=== PATIENT | female | born 1955 | race African-American/Black ===

== ENCOUNTER 2018-08-28 18:53 | Inpatient (IN) | payer MEDICAID, MEDICARE ==
[~2018-08-28] VITALS: Ht 167.6 cm; Wt 97.8 kg
[~2018-08-28 18:53] MED LIST: [UNRECOGNIZED DRUG - REMARK]
[2018-08-28 19:35] LABS: GLUCOSE,POINT OF CARE 107 MG/DL (70-110)
[2018-08-28] MEDS ORDERED: BUSP15 PO (19:38)
[2018-08-28] MEDS ORDERED: ACET1TAB12 PO (19:38)
[2018-08-28] MEDS ORDERED: AMIT10TA6 PO (19:38)
[2018-08-28] MEDS ORDERED: LISI-661 PO (19:38)
[2018-08-28] MEDS ORDERED: ISOS30TA6 PO (19:38)
[2018-08-28] MEDS ORDERED: METO-408 PO (19:38)
[2018-08-28] MEDS ORDERED: NITR.4 SL (19:38)
[2018-08-28] MEDS ORDERED: ROSU20 PO (19:38)
[2018-08-28] MEDS ORDERED: SIME80 PO (19:38)
[2018-08-28] MEDS ORDERED: ACETAMINOPHEN 500 MG TABLET PO ONE (20:00)
[2018-08-28] MEDS ORDERED: ASPIRIN 81 MG CHEWABLE TABLET PO ONE (20:00)
[2018-08-28 20:14] LABS: EOSINOPHILS % (AUTO) 1.2 % (1.0-6.0); HEMOGLOBIN 12.5 g/dL (12.0-16.0); LYMPHOCYTES # (AUTO) 0.8 K/uL (1.0-4.8); LYMPHOCYTES % (AUTO) 7.4 % (22.0-44.0); MEAN CORPUSCULAR HEMOGLOBIN 31.2 pg (26.0-34.0); MEAN CORPUSCULAR HGB CONC 33.7 G/dL (31.0-37.0); MEAN CORPUSCULAR VOLUME 93 fL (80-100); MONOCYTES % (AUTO) 8.8 % (2.0-9.0); NEUTROPHILS # (AUTO) 8.9 K/uL (1.8-7.7); NEUTROPHILS % (AUTO) 81.6 % (40.0-70.0); PLATELET COUNT (AUTO) 234 K/uL (150-450); RED BLOOD CELL COUNT(AUTO) 3.99 MIL/uL (4.00-5.20); RED CELL DISTRIBUTION WIDTH 13.5 % (11.5-14.5)
[2018-08-28 20:24] LABS: CALCIUM, TOTAL 8.9 mg/dL (8.8-10.5); CREATININE 1.14 mg/dL (0.60-1.30); POTASSIUM 3.6 mmol/L (3.5-5.1)
[2018-08-28 20:27] LABS: PROTHROMBIN TIME 10.7 SEC (9.4-11.6)
[2018-08-28 20:41] LABS: APPEARANCE,URINE CLOUDY (CLEAR); BILIRUBIN,URINE NEGATIVE (NEGATIVE); GLUCOSE, URINE (UA) NEGATIVE (NEGATIVE); KETONES,URINE NEGATIVE (NEGATIVE); LEUKOCYTE ESTERASE ,URINE MODERATE (NEGATIVE); NITRATE,URINE NEGATIVE (NEGATIVE); OCCULT BLOOD,URINE TRACE (NEGATIVE); PH,URINE 5.5 (5.0-8.0); PROTEIN,URINE POS 1+ (NEGATIVE); UROBILINOGEN,URINE 0.2 mg/dL (<=1.0)
[2018-08-28 20:47] LABS: AMPHET/METH SCREEN,URINE NEGATIVE (NEGATIVE); BARBITURATE SCREEN, URINE NEGATIVE (NEGATIVE); BENZODIAZEPINES SCREEN,URINE NEGATIVE (NEGATIVE); CANNABINOID SCREEN,URINE NEGATIVE (NEGATIVE); COCAINE SCREEN,URINE NEGATIVE (NEGATIVE); METHADONE SCREEN, URINE NEGATIVE (NEGATIVE); OPIATE SCREEN,URINE POSITIVE (NEGATIVE); PHENCYCLIDINE SCREEN,URINE NEGATIVE (NEGATIVE)
[2018-08-28 20:49] LABS: ALBUMIN 3.5 g/dL (3.4-5.0); BILIRUBIN,TOTAL 0.5 mg/dL (0.1-1.0); TOTAL PROTEIN, SERUM 7.8 g/dL (6.4-8.2)
[2018-08-28 20:53] LABS: BACTERIA,URINE Moderate /HPF (None Seen); RBC,URINE 0-2 /HPF (0-2); WBC,URINE 51-100 /HPF (0-5)
[2018-08-28 20:54] LABS: SQUAMOUS EPITHELIAL CELL,UR Few /LPF (None Seen)
[2018-08-28] MEDS ORDERED: CefTRIAXone SODIUM 2 GM in DEXTROSE 5%-WATER 20 ML IV ONE (21:00)
[2018-08-28] MEDS ORDERED: SODIUM CHLORIDE 0.9% 1,000 ML IV ONE ×2 (21:00→22:00)
[2018-08-28] MEDS ORDERED: AZITHROMYCIN 500 MG/NS 250 ML IV ONE (22:00)
[2018-08-28] MEDS ORDERED: MAGNESIUM HYDROXIDE SUSPENSION 30 ML UDCUP PO PRN ×2 (22:30)
[2018-08-28] MEDS ORDERED: ONDANSETRON HCL 4 MG/2 ML VIAL IVP PRN ×2 (22:30)
[2018-08-28] MEDS ORDERED: MORPHINE SULFATE 2 MG/ML SYRINGE IVP PRN (22:30)
[2018-08-28] MEDS ORDERED: ACETAMINOPHEN 325 MG TABLET PO PRN ×2 (22:30)
[2018-08-28] MEDS ORDERED: IPRATROPIUM BROMIDE 0.5 MG/2.5 ML NEB SOLUTION NEB PRN (22:30)
[2018-08-28] MEDS ORDERED: BISACODYL 10 MG RECTAL RECTAL SUPPOSITORY PR PRN ×2 (22:30)
[2018-08-28] MEDS ORDERED: HYDROCODONE/ACETAMINOPHEN 5-325 MG TABLET PO PRN (22:30)
[2018-08-28] MEDS ORDERED: ZOLPIDEM TARTRATE 5 MG TABLET PO PRN (22:30)
[2018-08-28] MEDS ORDERED: ALBUTEROL SULFATE 2.5 MG/0.5 ML NEB SOLUTION NEB PRN (22:30)
[2018-08-28] MEDS: HYDROCODONE/ACETAMINOPHEN 5-325 MG TABLET PO PRN (23:26)
[2018-08-28] MEDS: MORPHINE SULFATE 4 MG/ML SYRINGE IVP PRN (23:44)
[2018-08-29] VITALS (7 sets, daily range): BP systolic 119–144; BP diastolic 61–99
[2018-08-29] MEDS ORDERED: HEPARIN SODIUM,PORCINE 5,000 UNITS/ML VIAL SQ SCH
[2018-08-29] MEDS: HEPARIN SODIUM,PORCINE 5,000 UNITS/ML VIAL SQ SCH ×4 (00:40→23:53)
[2018-08-29] MEDS: MethylPREDNISolone SOD SUCC 40 MG/ML VIAL IVP SCH ×5 (00:40→23:53)
[2018-08-29] MEDS: ZOLPIDEM TARTRATE 5 MG TABLET PO PRN ×2 (00:41→22:26)
[2018-08-29] MEDS: MORPHINE SULFATE 4 MG/ML SYRINGE IVP PRN ×5 (04:48→21:30)
[2018-08-29] MEDS: HYDROCODONE/ACETAMINOPHEN 5-325 MG TABLET PO PRN ×5 (05:32→22:26)
[2018-08-29 06:10] LABS: BASOPHILS % (AUTO) 0.3 % (0.0-2.0); EOSINOPHILS % (AUTO) 0.1 % (1.0-6.0); HEMATOCRIT 37.5 % (36-46); HEMOGLOBIN 12.4 g/dL (12.0-16.0); LYMPHOCYTES # (AUTO) 0.6 K/uL (1.0-4.8); LYMPHOCYTES % (AUTO) 5.8 % (22.0-44.0); MEAN CORPUSCULAR VOLUME 94 fL (80-100); MONOCYTES # (AUTO) 0.3 K/uL (0.1-1.0); MONOCYTES % (AUTO) 2.8 % (2.0-9.0); NEUTROPHILS # (AUTO) 9.6 K/uL (1.8-7.7); PLATELET COUNT (AUTO) 243 K/uL (150-450); RED CELL DISTRIBUTION WIDTH 13.5 % (11.5-14.5)
[2018-08-29 06:33] LABS: ANION GAP 7 mmol/L (8-16); CALCIUM, TOTAL 8.7 mg/dL (8.8-10.5); CARBON DIOXIDE 28 mmol/L (22-29); CHLORIDE 104 mmol/L (98-107); CREATININE 1.04 mg/dL (0.60-1.30); GLOMERULAR FILTR. RATE CALC > 60 mL/min (>60); GLUCOSE,RANDOM 160 mg/dL (70-110); POTASSIUM 3.7 mmol/L (3.5-5.1); SODIUM SERUM 139 mmol/L (136-145); UREA NITROGEN, BLOOD 8 mg/dL (7-18)
[2018-08-29] MEDS: PANTOPRAZOLE SODIUM 40 MG DR TABLET PO SCH (08:31)
[2018-08-29] MEDS: BusPIRone HCL 15 MG TABLET PO SCH (08:32)
[2018-08-29] MEDS: GuaiFENesin SR 600 MG ER TABLET PO SCH ×2 (08:32→20:32)
[2018-08-29] MEDS: ISOSORBIDE MONONITRATE 30 MG ER TABLET PO SCH (08:32)
[2018-08-29] MEDS: LEVOFLOXACIN 750 MG/D5% WATER 150 ML IV SCH (08:33)
[2018-08-29] MEDS: DOCUSATE SODIUM 100 MG CAPSULE PO SCH ×2 (08:33→20:31)
[2018-08-29] MEDS: BENZONATATE 100 MG CAPSULE PO SCH ×3 (08:33→20:32)
[2018-08-29] MEDS: SIMETHICONE 80 MG CHEWABLE TABLET PO SCH ×2 (08:45→20:32)
[2018-08-29] MEDS ORDERED: ROSUVASTATIN CALCIUM 20 MG TABLET PO SCH ×2 (09:00→21:00)
[2018-08-29] MEDS ORDERED: PANTOPRAZOLE SODIUM 40 MG DR TABLET PO SCH (09:00)
[2018-08-29] MEDS ORDERED: LISINOPRIL 10 MG TABLET PO SCH (09:00)
[2018-08-29] MEDS ORDERED: DOCUSATE SODIUM 100 MG CAPSULE PO SCH (09:00)
[2018-08-29] MEDS: IPRATROPIUM BROMIDE 0.5 MG/2.5 ML NEB SOLUTION NEB SCH ×3 (09:17→20:19)
[2018-08-29] MEDS: ALBUTEROL SULFATE 2.5 MG/0.5 ML NEB SOLUTION NEB SCH ×3 (09:17→20:19)
[2018-08-29] MEDS: METOPROLOL TARTRATE 25 MG TABLET PO SCH (20:32)
[2018-08-29] MEDS ORDERED: AMITRIPTYLINE HCL 10 MG TABLET PO SCH (21:00)
[2018-08-30] MEDS: MORPHINE SULFATE 4 MG/ML SYRINGE IVP PRN ×3 (01:22→09:34)
[2018-08-30] MEDS: IPRATROPIUM BROMIDE 0.5 MG/2.5 ML NEB SOLUTION NEB SCH ×2 (02:00→09:10)
[2018-08-30] MEDS: ALBUTEROL SULFATE 2.5 MG/0.5 ML NEB SOLUTION NEB SCH ×2 (02:00→09:10)
[2018-08-30] MEDS: HYDROCODONE/ACETAMINOPHEN 5-325 MG TABLET PO PRN ×3 (02:23→11:39)
[2018-08-30 04:28] VITALS: BP_SYST 118; BP_SYST 123; BP_DIAS 71; BP_DIAS 80
[2018-08-30] MEDS: MethylPREDNISolone SOD SUCC 40 MG/ML VIAL IVP SCH ×2 (05:33→12:22)
[2018-08-30 07:01] LABS: BASOPHILS % (AUTO) 0.2 % (0.0-2.0); EOSINOPHILS % (AUTO) 0 % (1.0-6.0); HEMATOCRIT 35.5 % (36-46); LYMPHOCYTES % (AUTO) 7.3 % (22.0-44.0); MEAN CORPUSCULAR HEMOGLOBIN 31.1 pg (26.0-34.0); MEAN CORPUSCULAR HGB CONC 33.7 G/dL (31.0-37.0); MEAN CORPUSCULAR VOLUME 92 fL (80-100); MONOCYTES # (AUTO) 0.5 K/uL (0.1-1.0); MONOCYTES % (AUTO) 3.6 % (2.0-9.0); NEUTROPHILS # (AUTO) 12.5 K/uL (1.8-7.7); PLATELET COUNT (AUTO) 280 K/uL (150-450); RED BLOOD CELL COUNT(AUTO) 3.85 MIL/uL (4.00-5.20); RED CELL DISTRIBUTION WIDTH 13.2 % (11.5-14.5)
[2018-08-30 07:03] LABS: NEUTROPHILS % (AUTO) 88.9 % (40.0-70.0)
[2018-08-30 07:29] VITALS: BP 125/68
[2018-08-30 07:33] LABS: ANION GAP 9 mmol/L (8-16); CALCIUM, TOTAL 8.7 mg/dL (8.8-10.5); CARBON DIOXIDE 27 mmol/L (22-29); CHLORIDE 103 mmol/L (98-107); CREATININE 0.89 mg/dL (0.60-1.30); GLOMERULAR FILTR. RATE CALC > 60 mL/min (>60); GLUCOSE,RANDOM 190 mg/dL (70-110); POTASSIUM 4.7 mmol/L (3.5-5.1); SODIUM SERUM 139 mmol/L (136-145); UREA NITROGEN, BLOOD 13 mg/dL (7-18)
[2018-08-30] MEDS: BusPIRone HCL 15 MG TABLET PO SCH (08:18)
[2018-08-30] MEDS: HEPARIN SODIUM,PORCINE 5,000 UNITS/ML VIAL SQ SCH (08:18)
[2018-08-30] MEDS: METOPROLOL TARTRATE 25 MG TABLET PO SCH (08:19)
[2018-08-30] MEDS: GuaiFENesin SR 600 MG ER TABLET PO SCH (08:19)
[2018-08-30] MEDS: ISOSORBIDE MONONITRATE 30 MG ER TABLET PO SCH (08:19)
[2018-08-30] MEDS: SIMETHICONE 80 MG CHEWABLE TABLET PO SCH (08:19)
[2018-08-30] MEDS: DOCUSATE SODIUM 100 MG CAPSULE PO SCH (08:19)
[2018-08-30] MEDS: PANTOPRAZOLE SODIUM 40 MG DR TABLET PO SCH (08:20)
[2018-08-30] MEDS: LEVOFLOXACIN 750 MG/D5% WATER 150 ML IV SCH (08:21)
[2018-08-30] MEDS: BENZONATATE 100 MG CAPSULE PO SCH (09:00)
[2018-08-30] MEDS ORDERED: LISINOPRIL 5 MG TABLET PO SCH (09:00)
[2018-08-30] MEDS ORDERED: FLUOCINONIDE 0.05% 15 GM CREAM TP SCH (09:30)
== END 2018-08-30 12:25 | disposition home or self-care (01) | DRG 190 ==
LOC: EMS 18:54 → 5S 22:17 → 5N 08-29 21:33 → 5S 08-29 21:33
PROVIDERS: ADMIT Internal Medicine; ATTEND Internal Medicine
DX: J44.1 Chronic obstructive pulmonary disease with (acute) exacerbation (principal); J18.9 Pneumonia, unspecified organism; N39.0 Urinary tract infection, site not specified; F11.20 Opioid dependence, uncomplicated; J45.901 Unspecified asthma with (acute) exacerbation; J44.0 Chronic obstructive pulmonary disease with (acute) lower respiratory infection; I10 Essential (primary) hypertension; E66.9 Obesity, unspecified; F17.200 Nicotine dependence, unspecified, uncomplicated; I25.10 Atherosclerotic heart disease of native coronary artery without angina pectoris; Z68.34 Body mass index [BMI] 34.0-34.9, adult; I25.2 Old myocardial infarction
CPT/HCPCS: 83605; 87040; 87086; 93005; 94640; 96365; 96375; 99406; G0378; J0456; J0696; J1644; J1956; J2270; J2920; J7030; J7060

== ENCOUNTER 2019-01-10 12:58 | Emergency (ER) | payer MEDICARE ==
[~2019-01-10] VITALS: Ht 167.6 cm; Wt 90.9 kg
[~2019-01-10 12:58] MED LIST changes: +AMIT10TA6 PO; +BUSP15 PO; +ISOS30TA6 PO; +LISI-661 PO; +METO-408 PO; +NITR.4 SL; +ROSU20TA23 PO; +SIME80 PO; -[UNRECOGNIZED DRUG - REMARK]
[2019-01-10 14:12] LABS: EOSINOPHILS % (AUTO) 1.7 % (1.0-6.0); HEMATOCRIT 37.3 % (36-46); HEMOGLOBIN 12.2 g/dL (12.0-16.0); LYMPHOCYTES # (AUTO) 1.4 K/uL (1.0-4.8); LYMPHOCYTES % (AUTO) 21.8 % (22.0-44.0); MEAN CORPUSCULAR HEMOGLOBIN 30.9 pg (26.0-34.0); MEAN CORPUSCULAR HGB CONC 32.8 G/dL (31.0-37.0); MEAN CORPUSCULAR VOLUME 94 fL (80-100); MONOCYTES # (AUTO) 0.5 K/uL (0.1-1.0); MONOCYTES % (AUTO) 7.5 % (2.0-9.0); NEUTROPHILS # (AUTO) 4.5 K/uL (1.8-7.7); PLATELET COUNT (AUTO) 261 K/uL (150-450); RED BLOOD CELL COUNT(AUTO) 3.96 MIL/uL (4.00-5.20); RED CELL DISTRIBUTION WIDTH 13.9 % (11.5-14.5)
[2019-01-10 14:14] LABS: ANION GAP 11 mmol/L (8-16); CARBON DIOXIDE 24 mmol/L (22-29); CHLORIDE 103 mmol/L (98-107); CREATININE 0.78 mg/dL (0.60-1.30); GLOMERULAR FILTR. RATE CALC > 60 mL/min (>60); GLUCOSE,RANDOM 101 mg/dL (70-110); SODIUM SERUM 138 mmol/L (136-145); UREA NITROGEN, BLOOD 6 mg/dL (7-18)
[2019-01-10 14:19] LABS: ALANINE AMINOTRANSFERASE 14 U/L (12-78); ALBUMIN 3.4 g/dL (3.4-5.0); ALKALINE PHOSPHATASE 63 U/L (46-116); ASPARTATE AMINOTRANSFERASE 15 U/L (15-37); BILIRUBIN,TOTAL 0.4 mg/dL (0.1-1.0)
[2019-01-10 14:44] LABS: B-TYPE NATRIURETIC PEPTIDE 44 pg/mL (0-100)
[2019-01-10] MEDS ORDERED: PredniSONE 20 MG TABLET PO ONE (17:30)
[2019-01-10 19:41] VITALS: BP 134/89
== END 2019-01-10 20:04 | disposition home or self-care (01) ==
LOC: EMS 12:59
DX: J44.9 Chronic obstructive pulmonary disease, unspecified (principal); F11.90 Opioid use, unspecified, uncomplicated; F19.90 Other psychoactive substance use, unspecified, uncomplicated; I25.2 Old myocardial infarction; Z79.899 Other long term (current) drug therapy
CPT/HCPCS: 36415; 71045; 80053; 83880; 84484; 85025; 85379; 93005; 99284; J7512

== ENCOUNTER 2019-09-22 10:23 | Emergency (ER) | payer MEDICARE, OTHER ==
[~2019-09-22] VITALS: Ht 167.6 cm; Wt 94.5 kg
[~2019-09-22 10:23] MED LIST changes: -NITR.4 SL; +NITR0.4T52 SL
[2019-09-22 10:45] LABS: GLUCOSE,POINT OF CARE 205 MG/DL (70-110)
[2019-09-22] MEDS ORDERED: FLUT44HFA IH (10:46)
[2019-09-22] MEDS ORDERED: DOXY50 PO (10:46)
[2019-09-22] MEDS ORDERED: METO-558 PO (10:46)
[2019-09-22] MEDS ORDERED: LISI-660 PO (10:46)
[2019-09-22] MEDS ORDERED: IPRAHFA IH (10:46)
[2019-09-22] MEDS ORDERED: RANI150T7 PO (10:46)
[2019-09-22] MEDS ORDERED: HYDR-4061 PO ×2 (10:46)
[2019-09-22] MEDS ORDERED: PANT40TA25 PO (10:46)
[2019-09-22] MEDS ORDERED: PRED20 PO (10:46)
[2019-09-22] MEDS ORDERED: PROM6.2521 PO (10:46)
[2019-09-22] MEDS ORDERED: ALBU8HFA IH (10:46)
[2019-09-22] MEDS ORDERED: ADV100 IH (10:46)
[2019-09-22] MEDS ORDERED: PredniSONE 20 MG TABLET PO ONE (12:00)
[2019-09-22] MEDS ORDERED: ALBUTEROL SULFATE 2.5 MG/0.5 ML NEB SOLUTION NEB ONE (12:00)
[2019-09-22 13:11] VITALS: BP 123/64
== END 2019-09-22 13:33 | disposition home or self-care (01) ==
LOC: EMS 10:25
DX: J44.9 Chronic obstructive pulmonary disease, unspecified (principal); I25.2 Old myocardial infarction; F11.90 Opioid use, unspecified, uncomplicated; Z79.899 Other long term (current) drug therapy; Z98.890 Other specified postprocedural states
CPT/HCPCS: 71046; 82962; 93005; 94640; 99283; J7512